=== PATIENT | female | born 1945 | race Caucasian/White ===

== ENCOUNTER 2024-08-19 13:57 | Emergency (ER) | payer MEDICARE, OTHER ==
[2024-08-19 15:58] LABS: APPEARANCE,URINE SLIGHTLY CLOUDY (CLEAR); BILIRUBIN,URINE SMALL (NEGATIVE); COLOR,URINE YELLOW (YELLOW); GLUCOSE,URINE NEGATIVE (NEGATIVE); KETONES,URINE NEGATIVE (NEGATIVE); LEUKOCYTE ESTERASE,URINE NEGATIVE (NEGATIVE); NITRITE,URINE POSITIVE (NEGATIVE); OCCULT BLOOD,URINE TRACE-LYSED (NEGATIVE); PH,URINE 5.5 (5.0-8.0); PROTEIN,URINE NEGATIVE (NEGATIVE)
[2024-08-19 16:09] LABS: AMORPHOUS SEDIMENT,URINE NOT SEEN; BACTERIA,URINE MODERATE; EPITHELIAL CELLS,URINE FEW; MUCUS,URINE FEW
[2024-08-19] MEDS: Sodium Chloride 0.9% 1,000 ML IV ONE ×2 (16:58→19:07)
[2024-08-19] MEDS: Sodium Chloride 0.9% 10 ML Syringe FLUSH PRN ×2 (16:58→19:06)
[2024-08-19 17:01] LABS: BASOPHILS ABSOLUTE AUTO 0.03 K/uL (0.00-0.10); BASOPHILS PERCENT AUTO 0.3 % (0.1-1.3); EOSINOPHILS ABSOLUTE AUTO 0.03 K/uL (0.00-0.40); EOSINOPHILS PERCENT AUTO 0.3 % (0.0-5.4); HEMATOCRIT 41.1 % (34.3-46.0); HEMOGLOBIN 13.6 g/dL (11.2-15.5); IMMATURE GRAN PERCENT AUTO 1.1 % (0.0-0.7); LYMPHOCYTES ABSOLUTE AUTO 4.73 K/uL (0.8-3.3); LYMPHOCYTES PERCENT AUTO 52.4 % (11.4-47.7); MEAN CORPUSCULAR HEMOGLOBIN 30.3 pg (31.6-35.5); MEAN CORPUSCULAR HGB CONC 33.1 g/dL (31.6-35.5); MEAN CORPUSCULAR VOLUME 91.5 fL (81.4-99.0); MONOCYTES ABSOLUTE AUTO 0.76 K/uL (0.20-0.90); MONOCYTES PERCENT AUTO 8.4 % (3.3-12.6); NEUTROPHILS ABSOLUTE AUTO 3.38 K/uL (1.0-7.6); NEUTROPHILS PERCENT AUTO 37.5 % (40.0-78.1); PLATELET COUNT,PLT 217 K/uL (130-375); RED BLOOD CELL COUNT 4.49 M/uL (3.77-5.24)
[2024-08-19 17:16] LABS: ANION GAP 17.7 mmol/L (5.0-14.0); CALCIUM 9.6 mg/dL (8.5-10.1); CREATININE 1.7 mg/dL (0.6-1.0); EST CRCL DRUG DOSING (CG) 22.92 mL/min; POTASSIUM,K 4.7 mmol/L (3.6-5.2)
[2024-08-19] MEDS: Sodium Chloride 0.9% 100 ML IV SCH (19:06)
[2024-08-19] MEDS: Iopamidol 612 MG/ML 100 ML Bottle IV SCH (19:06)
[2024-08-19] MEDS: metroNIDAZOLE/Normal Saline 500 MG in Premix Bag 1 BAG IV ONE (19:07)
[2024-08-19] MEDS: cefTRIAXone 2 GM in Sodium Chloride 0.9% 50 ML IV ONE (21:43)
[2024-08-24 13:52] LABS: APTIMA MEDIA TYPE MultiTest Swab; C. TRACHOMATIS BY TMA Negative (Negative); N. GONORRHOEAE BY TMA Negative (Negative); SPECIMEN SOURCE Vaginal
== END 2024-08-19 22:04 | disposition home or self-care (01) ==
LOC: JP.ED 13:57
DX: N39.0 Urinary tract infection, site not specified (principal); E86.0 Dehydration; I10 Essential (primary) hypertension; E78.00 Pure hypercholesterolemia, unspecified; E03.9 Hypothyroidism, unspecified; Z90.49 Acquired absence of other specified parts of digestive tract; Z90.710 Acquired absence of both cervix and uterus; Z79.899 Other long term (current) drug therapy; Z79.890 Hormone replacement therapy
CPT/HCPCS: 36415; 74177; 80048; 81001; 85025; 87086; 87210; 87491; 87591; 96361; 96365; 96367; 99284; J0696; J1836; J3490; J7030; Q9967